=== PATIENT | male | born 1965 ===

== ENCOUNTER → 2020-01-09 | Outpatient (CLI) | payer OTHER ==
[~2020-01-09] MED LIST: ALBU90OI INH; CEPH500 PO; CRUTCH USE; DOXY100 PO; HYDGUAL120 PO; INDO25 PO; NAPR375 PO; NAPR500 PO; NAPR550 PO; OXYACE5T PO; PRED20 PO; RXNAPNA550 PO
[2020-01-11 15:14] LABS: CORONAVIRUS (COVID19) CSH-NRL Negative (Negative)
== END ==
LOC: LAB SHORT 18:05
PROVIDERS: Physician Assistant
DX: R05 Cough (principal); Z20.828 Contact with and (suspected) exposure to other viral communicable diseases
CPT/HCPCS: U0003